=== PATIENT | male | born 1970 | race Caucasian/White ===

== ENCOUNTER → 2017-02-12 | Outpatient (CLI) | payer MEDICARE, OTHER ==
[2017-02-12 13:20] VITALS: BP 126/91; PULSE 88; RESP 18; TEMP 97.6
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
== END | disposition home or self-care (01) ==
LOC: PNWHC3 12:36
PROVIDERS: ATTEND Specialist
DX: M51.36 Other intervertebral disc degeneration, lumbar region (principal); M96.1 Postlaminectomy syndrome, not elsewhere classified; M54.16 Radiculopathy, lumbar region; M46.1 Sacroiliitis, not elsewhere classified; I10 Essential (primary) hypertension; F32.9 Major depressive disorder, single episode, unspecified; Z98.1 Arthrodesis status; Z86.14 Personal history of Methicillin resistant Staphylococcus aureus infection; F17.200 Nicotine dependence, unspecified, uncomplicated; Z79.899 Other long term (current) drug therapy; Z79.891 Long term (current) use of opiate analgesic
CPT/HCPCS: 80307 ×2; G0463; 80346; 80349; 80354; 80364; 99211

== ENCOUNTER → 2017-04-04 | Outpatient (CLI) | payer MEDICARE, OTHER ==
[2017-04-04 15:01] VITALS: BP 146/101; PULSE 88; RESP 16; TEMP 98
--- NOTE | 2017-04-04 15:48 | P.PN ---
Subjective This is follow-up visit for this patient with a history of severe and chronic low back pain ," but failed back surgery syndrome and lumbar area, and his currently on Percocet and Neurontin and Motrin, we've done a urine drug screen last visit and he is here today for follow-up visit I checked the urine drug screen and it was positive for fentanyle, and benzodiazepine, and is positive for marijuana, for this reason patient will be discharged from our pain clinic, patient given a prescription for Neurontin 100 mg 2 tablets 3 times a day, and we cannot provide services ,for this patient, in the [facility] pain clinic , Objective - Vital Signs Vital signs: Vital Signs Temp 98.0 F 04/04/17 14:54 Pulse 88 04/04/17 14:54 Resp 16 04/04/17 14:54 BP 146/101 04/04/17 14:54 Pulse Ox 99 04/04/17 14:54 Intake & Output 04/03/17 04/04/17 04/04/17 18:59 06:59 18:59 Weight 107.048 kg
== END | disposition home or self-care (01) ==
LOC: PNWHC3 13:48
PROVIDERS: ATTEND Specialist
DX: M54.5 Low back pain (principal); G89.29 Other chronic pain; M96.1 Postlaminectomy syndrome, not elsewhere classified; Z79.899 Other long term (current) drug therapy; Z79.891 Long term (current) use of opiate analgesic; Z79.1 Long term (current) use of non-steroidal anti-inflammatories (NSAID)
CPT/HCPCS: 99211